=== PATIENT | female | born 1930 | race Caucasian/White ===

== ENCOUNTER 2017-10-14 16:26 | Emergency (ER) | payer BC ==
[~2017-10-14] VITALS: Ht 162.6 cm; Wt 85.0 kg
[~2017-10-14 16:26] MED LIST: OMNIPAQUE 350 MG/ML, 100ML BOTTLE ONE
[2017-10-14] MEDS ORDERED: SODIUM CHLORIDE 0.9% 1,000 ML IV ONE (16:34)
[2017-10-14] MEDS ORDERED: SODIUM CHLORIDE FLUSH 10ML SYR IVF ONE (17:00)
[2017-10-14] MEDS ORDERED: SODIUM CHLORIDE 0.9% 1,000ML IVBOLUS ONE (17:00)
[2017-10-14] MEDS ORDERED: PLEASE ENTER ALLERGIES MC SCH (17:00)
[2017-10-14 17:17] LABS: BASOPHILS # (AUTO) 0.02 x10^3/uL (0-0.1); BASOPHILS % (AUTO) 0 % (0-1); EOSINOPHILS # (AUTO) 0.25 x10^3/uL (0-0.4); EOSINOPHILS % (AUTO) 5 % (1-7); LYMPHOCYTES # (AUTO) 1.36 x10^3/uL (1-3.4); LYMPHOCYTES % (AUTO) 25 % (22-44); MD NO; MEAN CORPUSCULAR HEMOGLOBIN 31.7 pg (27.0-34.8); MEAN CORPUSCULAR HGB CONC 32.8 g/dL (33.2-36.2); MEAN CORPUSCULAR VOLUME 96.7 fL (81-97); MEAN PLATELET VOLUME 7.7 fL (7.4-10.4); MONOCYTES # (AUTO) 0.63 x10^3/uL (0.2-0.8); MONOCYTES % (AUTO) 12 % (2-9); NEUTROPHILS # (AUTO) 3.21 x10^3/uL (1.8-6.8); NEUTROPHILS % (AUTO) 59 % (42-75); PLATELET COUNT 224 x10^3/uL (130-400); RED BLOOD COUNT 4.03 x10^6/uL (3.82-5.82); RED CELL DISTRIBUTION WIDTH 15.3 % (9.4-14.8)
[2017-10-14 17:30] LABS: ANION GAP 9 mmol/L (5-15); CALCIUM 8.2 mg/dL (8.5-10.1); CHLORIDE 111 mmol/L (98-107); CREATININE 1.02 mg/dL (0.55-1.3); TROPONIN I 0.022 ng/mL (0.000-0.045)
[2017-10-14 17:31] LABS: ALANINE AMINOTRANSFERASE 21 U/L (12-78); ALBUMIN 3.3 g/dL (3.4-5.0)
[2017-10-14 17:33] LABS: ALKALINE PHOSPHATASE 117 U/L (45-117); TOTAL PROTEIN 6.6 g/dL (6.4-8.2)
[2017-10-14 17:53] LABS: MICROSCOPIC NOT IND
[2017-10-14 18:06] LABS: CULTURE INDICATED? NO
[2017-10-14] MEDS ORDERED: APIX5TAB PO (18:52)
[2017-10-14] MEDS ORDERED: DILT120C64 PO (18:52)
[2017-10-14] MEDS ORDERED: VENL75CA PO (18:52)
[2017-10-14] MEDS ORDERED: FURO-93 PO (18:52)
[2017-10-14] MEDS ORDERED: SPIR25TA PO (18:52)
[2017-10-14] MEDS ORDERED: POTA10TA6 PO (18:52)
[2017-10-14] MEDS ORDERED: ATOR20TA PO (18:52)
[2017-10-14] MEDS ORDERED: OMEP-110 PO (18:52)
[2017-10-14] MEDS ORDERED: PRAM0.255 PO (18:53)
[2017-10-14] MEDS ORDERED: PREG50CA PO (18:53)
[2017-10-14] MEDS ORDERED: B12/1TAB PO (18:53)
[2017-10-14] MEDS ORDERED: FERR324T8 PO (18:53)
[2017-10-14] MEDS ORDERED: CHOL200040 PO (18:53)
[2017-10-14] MEDS ORDERED: DONE23TA3 PO (18:53)
[2017-10-14] MEDS ORDERED: FEXO1TAB29 PO (18:53)
[2017-10-14 20:29] VITALS: BP 129/77
== END 2017-10-14 21:10 | disposition home or self-care (01) ==
LOC: ED 20:20
DX: R10.32 Left lower quadrant pain (principal); E78.5 Hyperlipidemia, unspecified; I48.91 Unspecified atrial fibrillation; J44.9 Chronic obstructive pulmonary disease, unspecified; Z90.710 Acquired absence of both cervix and uterus; Z86.73 Personal history of transient ischemic attack (TIA), and cerebral infarction without residual deficits; Z95.0 Presence of cardiac pacemaker
CPT/HCPCS: 36415; 70450; 71045; 74177; 80053; 81003; 84484; 85025; 93005; 96360; 96361; 99285; J7030

== ENCOUNTER 2017-12-16 12:52 | Inpatient (IN) | payer BC, MEDICARE ==
[~2017-12-16] VITALS: Ht 162.6 cm; Wt 62.0 kg
[~2017-12-16 12:52] MED LIST changes: +APIX5TAB PO; +ATOR20TA PO; +B12/1TAB PO; +CHOL200040 PO; +DILT120C64 PO; +DONE23TA3 PO; +FERR324T8 PO; +FEXO1TAB29 PO; +FURO-93 PO; +OMEP-110 PO; -OMNIPAQUE 350 MG/ML, 100ML BOTTLE ONE; +POTA10TA6 PO; +PRAM0.255 PO; +PREG50CA PO; +SPIR25TA PO; +VENL75CA PO
[2017-12-16] MEDS ORDERED: SODIUM CHLORIDE FLUSH 10ML SYR IVF ONE (13:30)
[2017-12-16 13:43] LABS: BASOPHILS # (AUTO) 0.03 x10^3/uL (0-0.1); BASOPHILS % (AUTO) 1 % (0-1); EOSINOPHILS # (AUTO) 0.01 x10^3/uL (0-0.4); EOSINOPHILS % (AUTO) 0 % (1-7); LYMPHOCYTES # (AUTO) 0.64 x10^3/uL (1-3.4); LYMPHOCYTES % (AUTO) 11 % (22-44); MD NO; MEAN CORPUSCULAR VOLUME 94.2 fL (80-100); MEAN PLATELET VOLUME 8.9 fL (7.4-10.4); MONOCYTES # (AUTO) 0.71 x10^3/uL (0.2-0.8); MONOCYTES % (AUTO) 13 % (2-9); NEUTROPHILS # (AUTO) 4.28 x10^3/uL (1.8-6.8); NEUTROPHILS % (AUTO) 76 % (42-75); PLATELET COUNT 183 x10^3/uL (130-400); RED BLOOD COUNT 3.48 x10^6/uL (3.82-5.3); RED CELL DISTRIBUTION WIDTH 17.1 % (9.6-15.2)
[2017-12-16 13:55] LABS: ALANINE AMINOTRANSFERASE 253 U/L (12-78); ALBUMIN 3.8 g/dL (3.4-5.0); ANION GAP 9 mmol/L (5-15); CALCIUM 8.7 mg/dL (8.5-10.1); CHLORIDE 109 mmol/L (98-107); CREATININE 1.31 mg/dL (0.55-1.02)
[2017-12-16 13:57] LABS: ALKALINE PHOSPHATASE 194 U/L (45-117); BILIRUBIN,TOTAL 3.5 mg/dL (0.2-1.0); INTERNATIONAL NORMALIZED RATIO 1.48 (0.93-1.1); PROTHROMBIN TIME 15.3 Seconds (9.6-11.5)
[2017-12-16 14:47] LABS: MICROSCOPIC INDICATED
[2017-12-16] MEDS ORDERED: HYDR1TAB12 PO (15:08)
[2017-12-16 15:21] LABS: CULTURE INDICATED? YES
[2017-12-16] MEDS ORDERED: ASPIRIN 81 MG TABLET EC ONE (15:47)
[2017-12-16] MEDS ORDERED: ASPIRIN 81 MG TABLET CHEW PO ONE (16:00)
[2017-12-16] MEDS ORDERED: ASPIRIN 81 MG TABLET CHEW ONE (16:12)
[2017-12-16] MEDS ORDERED: LORazepam 2 MG/ML, 1ML ONE (17:15)
[2017-12-16] MEDS ORDERED: CEFTRIAXONE PMX 1GM/50ML 50 ML ONE (17:15)
[2017-12-16] MEDS ORDERED: LORazepam 2 MG/ML, 1ML IVPush ONE (17:30)
[2017-12-16] MEDS ORDERED: CEFTRIAXONE PMX 1GM/50ML 50 ML IV ONE (17:30)
[2017-12-16] MEDS ORDERED: ONDANSETRON ODT 4 MG PO PRN (19:30)
[2017-12-16] MEDS ORDERED: ACETAMINOPHEN 325 MG TABLET PO PRN (19:30)
[2017-12-16] MEDS ORDERED: hydrALAzine 20 MG/ML, 1ML IVPush PRN (19:30)
[2017-12-16] MEDS ORDERED: HYDROcodone/APAP 5/325 TABLET PO PRN (19:30)
[2017-12-16] MEDS ORDERED: OMEPRAZOLE 20 MG CAPSULE.DR PO PRN (19:30)
[2017-12-16 20:26] VITALS: BP 158/76
[2017-12-16] MEDS: SODIUM CHLORIDE 0.9% 1,000 ML IV SCH (21:37)
[2017-12-16] MEDS: PREGABALIN 75 MG CAPSULE PO SCH (21:38)
[2017-12-16] MEDS: APIXABAN 5 MG TABLET PO SCH (21:38)
[2017-12-16] MEDS: VENLAFAXINE 75 MG CAP ER PO SCH (21:38)
[2017-12-17 01:53] LABS: BASOPHILS # (AUTO) 0.02 x10^3/uL (0-0.1); BASOPHILS % (AUTO) 0 % (0-1); EOSINOPHILS # (AUTO) 0.03 x10^3/uL (0-0.4); EOSINOPHILS % (AUTO) 1 % (1-7); LYMPHOCYTES # (AUTO) 0.93 x10^3/uL (1-3.4); LYMPHOCYTES % (AUTO) 16 % (22-44); MD NO; MEAN CORPUSCULAR HGB CONC 33.8 g/dL (32.4-35.8); MEAN CORPUSCULAR VOLUME 94.6 fL (80-100); MEAN PLATELET VOLUME 9.3 fL (7.4-10.4); MONOCYTES # (AUTO) 0.97 x10^3/uL (0.2-0.8); MONOCYTES % (AUTO) 17 % (2-9); NEUTROPHILS # (AUTO) 3.82 x10^3/uL (1.8-6.8); NEUTROPHILS % (AUTO) 66 % (42-75); PLATELET COUNT 150 x10^3/uL (130-400); RED BLOOD COUNT 3.07 x10^6/uL (3.82-5.3); RED CELL DISTRIBUTION WIDTH 16.8 % (9.6-15.2)
[2017-12-17 01:54] VITALS: BP 123/71
[2017-12-17 01:58] LABS: ANION GAP 10 mmol/L (5-15); CALCIUM 8.2 mg/dL (8.5-10.1); CHLORIDE 112 mmol/L (98-107); CREATININE 1.28 mg/dL (0.55-1.02)
[2017-12-17 02:18] LABS: TROPONIN I 0.073 ng/mL (0.000-0.045)
[2017-12-17 07:15] VITALS: BP 145/80
[2017-12-17 08:04] LABS: TROPONIN I 0.078 ng/mL (0.000-0.045)
[2017-12-17] MEDS: APIXABAN 5 MG TABLET PO SCH ×2 (09:09→20:39)
[2017-12-17] MEDS: FERROUS GLUCONATE 324 MG TABLET PO SCH (09:09)
[2017-12-17] MEDS: SPIRONOLACTONE 25 MG TABLET PO SCH (09:10)
[2017-12-17] MEDS: PREGABALIN 75 MG CAPSULE PO SCH ×2 (09:10→20:39)
[2017-12-17] MEDS: VENLAFAXINE 75 MG CAP ER PO SCH ×2 (09:10→20:39)
[2017-12-17] MEDS: DILTIAZEM 120 MG CAP.ER.24H PO SCH (09:10)
[2017-12-17] MEDS: SODIUM CHLORIDE 0.9% 1,000 ML IV SCH (10:06)
[2017-12-17 14:10] VITALS: BP 127/71
[2017-12-17] MEDS: CEFTRIAXONE PMX 1GM/50ML 50 ML IV SCH (18:04)
[2017-12-17 18:36] VITALS: BP 143/81
[2017-12-17] MEDS ORDERED: FEXO60TA24 PO (22:20)
[2017-12-17] MEDS ORDERED: ATOR20TA9 PO (22:20)
[2017-12-18] MEDS: SODIUM CHLORIDE 0.9% 1,000 ML IV SCH ×2 (00:05→14:17)
[2017-12-18 02:34] VITALS: BP 132/77
[2017-12-18 04:53] LABS: BASOPHILS # (AUTO) 0.02 x10^3/uL (0-0.1); BASOPHILS % (AUTO) 0 % (0-1); EOSINOPHILS # (AUTO) 0.11 x10^3/uL (0-0.4); EOSINOPHILS % (AUTO) 2 % (1-7); LYMPHOCYTES # (AUTO) 0.77 x10^3/uL (1-3.4); LYMPHOCYTES % (AUTO) 13 % (22-44); MD NO; MEAN CORPUSCULAR HEMOGLOBIN 31.1 pg (27.0-34.8); MEAN CORPUSCULAR VOLUME 94.2 fL (80-100); MEAN PLATELET VOLUME 9.7 fL (7.4-10.4); MONOCYTES # (AUTO) 1.04 x10^3/uL (0.2-0.8); MONOCYTES % (AUTO) 18 % (2-9); NEUTROPHILS # (AUTO) 3.98 x10^3/uL (1.8-6.8); NEUTROPHILS % (AUTO) 67 % (42-75); PLATELET COUNT 133 x10^3/uL (130-400); RED CELL DISTRIBUTION WIDTH 17.3 % (9.6-15.2)
[2017-12-18 05:09] LABS: CHLORIDE 114 mmol/L (98-107)
[2017-12-18 05:17] LABS: ALANINE AMINOTRANSFERASE 339 U/L (12-78); ALBUMIN 3.3 g/dL (3.4-5.0); ALKALINE PHOSPHATASE 156 U/L (45-117); ANION GAP 10 mmol/L (5-15); BILIRUBIN,TOTAL 2.5 mg/dL (0.2-1.0); CALCIUM 8.2 mg/dL (8.5-10.1); CREATININE 1.11 mg/dL (0.55-1.02); TOTAL PROTEIN 6.1 g/dL (6.4-8.2)
[2017-12-18 07:00] VITALS: BP 121/75
[2017-12-18] MEDS: DILTIAZEM 120 MG CAP.ER.24H PO SCH (09:27)
[2017-12-18] MEDS: VENLAFAXINE 75 MG CAP ER PO SCH ×2 (09:27→20:04)
[2017-12-18] MEDS: SPIRONOLACTONE 25 MG TABLET PO SCH (09:27)
[2017-12-18] MEDS: APIXABAN 5 MG TABLET PO SCH (09:28)
[2017-12-18] MEDS: PREGABALIN 75 MG CAPSULE PO SCH ×2 (09:28→20:04)
[2017-12-18] MEDS: FERROUS GLUCONATE 324 MG TABLET PO SCH (09:28)
[2017-12-18 14:02] VITALS: BP 139/84
[2017-12-18] MEDS: CEFTRIAXONE PMX 1GM/50ML 50 ML IV SCH (17:45)
[2017-12-18 18:38] VITALS: BP 132/83
[2017-12-19 02:17] VITALS: BP 129/68
[2017-12-19] MEDS: SODIUM CHLORIDE 0.9% 1,000 ML IV SCH ×2 (03:46→16:31)
[2017-12-19 05:08] LABS: INTERNATIONAL NORMALIZED RATIO 1.57 (0.93-1.1)
[2017-12-19 05:13] LABS: ALANINE AMINOTRANSFERASE 377 U/L (12-78); ALBUMIN 3.2 g/dL (3.4-5.0); ANION GAP 10 mmol/L (5-15); CALCIUM 8.2 mg/dL (8.5-10.1); CHLORIDE 112 mmol/L (98-107); CREATININE 1.05 mg/dL (0.55-1.02)
[2017-12-19 05:14] LABS: ALKALINE PHOSPHATASE 164 U/L (45-117); BILIRUBIN,TOTAL 2.3 mg/dL (0.2-1.0); TOTAL PROTEIN 6.4 g/dL (6.4-8.2)
[2017-12-19 05:55] LABS: MD YES; MEAN CORPUSCULAR HEMOGLOBIN 30.9 pg (27.0-34.8); MEAN CORPUSCULAR HGB CONC 32.5 g/dL (32.4-35.8); MEAN CORPUSCULAR VOLUME 95.3 fL (80-100); PLATELET COUNT 136 x10^3/uL (130-400); RED BLOOD COUNT 3.18 x10^6/uL (3.82-5.3); RED CELL DISTRIBUTION WIDTH 17.2 % (9.6-15.2)
[2017-12-19 05:57] LABS: ANISOCYTOSIS 1+; BASOS#(MANUAL) 0.06 x10^3/uL (0-0.1); BASOS% (MANUAL) 1 % (0-1); EOS#(MANUAL) 0.06 x10^3/uL (0.0-0.4); EOS% (MANUAL) 1 % (1-7); LYMPH#(MANUAL) 1.02 x10^3/uL (1-3.4); LYMPHS% (MANUAL) 17 % (22-44); MONOS#(MANUAL) 0.18 x10^3/uL (0.3-2.7); MONOS% (MANUAL) 3 % (2-9); NRBC % (MANUAL) 2 % (0-1); OVALOCYTES 2+; POLYCHROMASIA 1+; SEG#(MANUAL) 4.68 x10^3/uL (1.8-6.8); SEGS% (MANUAL) 78 % (42-75)
[2017-12-19 05:58] LABS: ECHINOCYTES 1+; SCHISTOCYTES 1+
[2017-12-19 05:59] LABS: <PLATELET ESTIMATE> ADEQUATE; <PLT MORPHOLOGY> NORMAL PLT MORPH
[2017-12-19 07:10] VITALS: BP 130/78
[2017-12-19] MEDS: PREGABALIN 75 MG CAPSULE PO SCH ×3 (09:00→20:57)
[2017-12-19] MEDS: DILTIAZEM 120 MG CAP.ER.24H PO SCH ×2 (09:00→10:57)
[2017-12-19] MEDS: FERROUS GLUCONATE 324 MG TABLET PO SCH ×2 (09:00→10:57)
[2017-12-19] MEDS: SPIRONOLACTONE 25 MG TABLET PO SCH ×2 (09:00→10:57)
[2017-12-19] MEDS: VENLAFAXINE 75 MG CAP ER PO SCH ×3 (09:00→21:42)
[2017-12-19 12:53] VITALS: BP 125/75
[2017-12-19] MEDS: CEFTRIAXONE PMX 1GM/50ML 50 ML IV SCH (16:31)
[2017-12-19] MEDS: GUAIFENESIN/DM 200-20MG, 10ML UDC PO SCH ×2 (16:31→21:42)
[2017-12-19 18:55] VITALS: BP 120/75
[2017-12-20 01:29] VITALS: BP 138/84
[2017-12-20] MEDS ORDERED: MAGNESIUM SULFATE PMX 2GM/50ML 50 ML IV ONE (02:00)
[2017-12-20] MEDS: GUAIFENESIN/DM 200-20MG, 10ML UDC PO SCH ×4 (04:46→23:03)
[2017-12-20 05:46] LABS: INTERNATIONAL NORMALIZED RATIO 1.51 (0.93-1.1); PROTHROMBIN TIME 15.4 Seconds (9.6-11.5)
[2017-12-20 05:57] LABS: MEAN CORPUSCULAR HEMOGLOBIN 31.6 pg (27.0-34.8); MEAN CORPUSCULAR HGB CONC 33.2 g/dL (32.4-35.8); MEAN CORPUSCULAR VOLUME 95.1 fL (80-100); MEAN PLATELET VOLUME 9.8 fL (7.4-10.4); PLATELET COUNT 141 x10^3/uL (130-400); RED BLOOD COUNT 3.06 x10^6/uL (3.82-5.3); RED CELL DISTRIBUTION WIDTH 17.1 % (9.6-15.2)
[2017-12-20 06:12] LABS: CHLORIDE 113 mmol/L (98-107)
[2017-12-20 06:21] LABS: ALANINE AMINOTRANSFERASE 404 U/L (12-78); ALBUMIN 3.3 g/dL (3.4-5.0); ALKALINE PHOSPHATASE 150 U/L (45-117); ANION GAP 14 mmol/L (5-15); BILIRUBIN,TOTAL 2.6 mg/dL (0.2-1.0); CALCIUM 8.1 mg/dL (8.5-10.1); CREATININE 1.01 mg/dL (0.55-1.02); TOTAL PROTEIN 6.3 g/dL (6.4-8.2)
[2017-12-20 06:37] LABS: MD YES
[2017-12-20 06:44] LABS: EOS#(MANUAL) 0.06 x10^3/uL (0.0-0.4); EOS% (MANUAL) 1 % (1-7); LYMPH#(MANUAL) 1.26 x10^3/uL (1-3.4); LYMPHS% (MANUAL) 21 % (22-44); METAMYELOCYTES# (MANUAL) 0.06 x10^3/uL (0-0); METAMYELOCYTES% (MANUAL) 1 % (0-1); MONOS% (MANUAL) 15 % (2-9); NRBC % (MANUAL) 2 % (0-1); SEG#(MANUAL) 3.72 x10^3/uL (1.8-6.8); SEGS% (MANUAL) 62 % (42-75)
[2017-12-20 06:45] LABS: <PLATELET ESTIMATE> ADEQUATE; <PLT MORPHOLOGY> NORMAL PLT MORPH; ANISOCYTOSIS 1+; ECHINOCYTES 1+; OVALOCYTES 2+; SCHISTOCYTES 1+
[2017-12-20 07:08] VITALS: BP 132/83
[2017-12-20] MEDS: FERROUS GLUCONATE 324 MG TABLET PO SCH (09:44)
[2017-12-20] MEDS: VENLAFAXINE 75 MG CAP ER PO SCH ×2 (09:44→21:00)
[2017-12-20] MEDS: SPIRONOLACTONE 25 MG TABLET PO SCH (09:44)
[2017-12-20] MEDS: PREGABALIN 75 MG CAPSULE PO SCH ×2 (09:44→21:30)
[2017-12-20] MEDS: DILTIAZEM 120 MG CAP.ER.24H PO SCH (09:44)
[2017-12-20] MEDS: SODIUM CHLORIDE 0.9% 1,000 ML IV SCH (12:00)
[2017-12-20 14:41] VITALS: BP 115/71
[2017-12-20] MEDS ORDERED: FUROSEMIDE 40 MG/4 ML IV ONE (16:00)
[2017-12-20] MEDS ORDERED: OMNIPAQUE 350 MG/ML, 100ML BOTTLE ONE (17:21)
[2017-12-20] MEDS: POTASSIUM CHLORIDE 10 MEQ TABLET.ER PO SCH (18:13)
[2017-12-20 18:38] VITALS: BP 124/69
[2017-12-21 02:09] VITALS: BP 130/86
[2017-12-21] MEDS: GUAIFENESIN/DM 200-20MG, 10ML UDC PO SCH ×4 (04:00→22:00)
[2017-12-21 05:11] LABS: ALBUMIN 3.2 g/dL (3.4-5.0); ANION GAP 9 mmol/L (5-15); CHLORIDE 111 mmol/L (98-107); MEAN CORPUSCULAR HEMOGLOBIN 30.9 pg (27.0-34.8); MEAN CORPUSCULAR HGB CONC 32.5 g/dL (32.4-35.8); MEAN CORPUSCULAR VOLUME 94.8 fL (80-100); PLATELET COUNT 145 x10^3/uL (130-400); RED BLOOD COUNT 3.04 x10^6/uL (3.82-5.3); RED CELL DISTRIBUTION WIDTH 17.7 % (9.6-15.2)
[2017-12-21 05:16] LABS: ALANINE AMINOTRANSFERASE 371 U/L (12-78); ALKALINE PHOSPHATASE 132 U/L (45-117); BILIRUBIN,TOTAL 2.9 mg/dL (0.2-1.0); CREATININE 1.16 mg/dL (0.55-1.02)
[2017-12-21 05:42] LABS: MD YES
[2017-12-21 05:44] LABS: EOS#(MANUAL) 0.11 x10^3/uL (0.0-0.4); EOS% (MANUAL) 2 % (1-7); LYMPH#(MANUAL) 1.25 x10^3/uL (1-3.4); LYMPHS% (MANUAL) 22 % (22-44); MONOS#(MANUAL) 0.51 x10^3/uL (0.3-2.7); MONOS% (MANUAL) 9 % (2-9); NRBC % (MANUAL) 3 % (0-1); SEG#(MANUAL) 3.82 x10^3/uL (1.8-6.8); SEGS% (MANUAL) 67 % (42-75)
[2017-12-21 05:45] LABS: ANISOCYTOSIS 1+; ECHINOCYTES 1+; OVALOCYTES 2+; SCHISTOCYTES 1+
[2017-12-21 05:46] LABS: <PLATELET ESTIMATE> ADEQUATE; <PLT MORPHOLOGY> NORMAL PLT MORPH; POLYCHROMASIA 1+
[2017-12-21 07:22] VITALS: BP 133/81
[2017-12-21] MEDS ORDERED: FUROSEMIDE 40 MG/4 ML IV SCH (09:00)
[2017-12-21] MEDS: SPIRONOLACTONE 25 MG TABLET PO SCH (09:21)
[2017-12-21] MEDS: DILTIAZEM 120 MG CAP.ER.24H PO SCH (09:21)
[2017-12-21] MEDS: VENLAFAXINE 75 MG CAP ER PO SCH ×2 (09:21→21:00)
[2017-12-21] MEDS: PREGABALIN 75 MG CAPSULE PO SCH ×2 (09:21→20:59)
[2017-12-21] MEDS: FERROUS GLUCONATE 324 MG TABLET PO SCH (09:21)
[2017-12-21] MEDS: FUROSEMIDE 40 MG/4 ML IV SCH ×2 (09:33→22:01)
[2017-12-21 13:14] VITALS: BP 111/66
[2017-12-21] MEDS: POTASSIUM CHLORIDE 10 MEQ TABLET.ER PO SCH (17:33)
[2017-12-21 20:45] VITALS: BP 126/70
[2017-12-22 01:10] VITALS: BP 124/75
[2017-12-22] MEDS: GUAIFENESIN/DM 200-20MG, 10ML UDC PO SCH ×4 (04:00→21:17)
[2017-12-22 06:02] LABS: ANION GAP 8 mmol/L (5-15); CALCIUM 7.8 mg/dL (8.5-10.1); CHLORIDE 109 mmol/L (98-107)
[2017-12-22 06:06] LABS: ALANINE AMINOTRANSFERASE 308 U/L (12-78); ALKALINE PHOSPHATASE 134 U/L (45-117); BILIRUBIN,TOTAL 2.6 mg/dL (0.2-1.0)
[2017-12-22] MEDS ORDERED: POTASSIUM CHLORIDE 20 MEQ TAB.ER.PRT PO ONE ×2 (08:00)
[2017-12-22 08:11] VITALS: BP 123/81
[2017-12-22] MEDS: FUROSEMIDE 40 MG/4 ML IV SCH ×2 (08:15→21:17)
[2017-12-22] MEDS: VENLAFAXINE 75 MG CAP ER PO SCH ×2 (08:15→21:00)
[2017-12-22] MEDS: PREGABALIN 75 MG CAPSULE PO SCH ×2 (08:16→21:17)
[2017-12-22] MEDS: FERROUS GLUCONATE 324 MG TABLET PO SCH (08:16)
[2017-12-22] MEDS: DILTIAZEM 120 MG CAP.ER.24H PO SCH (08:16)
[2017-12-22] MEDS: SPIRONOLACTONE 25 MG TABLET PO SCH (08:16)
[2017-12-22 13:45] VITALS: BP 121/91
[2017-12-22 14:05] LABS: ANA SCREEN POSITIVE (Negative); ANTI-NUCLEAR ANTIBODY PATTERN SPECKLED
[2017-12-22] MEDS: POTASSIUM CHLORIDE 20 MEQ TAB.ER.PRT PO SCH (16:18)
[2017-12-22 20:06] VITALS: BP 118/76
[2017-12-23 02:36] VITALS: BP 113/70
[2017-12-23] MEDS: GUAIFENESIN/DM 200-20MG, 10ML UDC PO SCH ×4 (04:00→22:00)
[2017-12-23 05:30] LABS: ANION GAP 7 mmol/L (5-15); CALCIUM 7.7 mg/dL (8.5-10.1); CHLORIDE 108 mmol/L (98-107)
[2017-12-23 05:36] LABS: ALANINE AMINOTRANSFERASE 260 U/L (12-78); ALKALINE PHOSPHATASE 146 U/L (45-117); BILIRUBIN,TOTAL 2.7 mg/dL (0.2-1.0); CREATININE 1.08 mg/dL (0.55-1.02)
[2017-12-23 08:17] VITALS: BP 136/78
[2017-12-23] MEDS: FERROUS GLUCONATE 324 MG TABLET PO SCH (09:53)
[2017-12-23] MEDS: PREGABALIN 75 MG CAPSULE PO SCH ×2 (09:53→20:32)
[2017-12-23] MEDS: DILTIAZEM 120 MG CAP.ER.24H PO SCH (09:53)
[2017-12-23] MEDS: SPIRONOLACTONE 25 MG TABLET PO SCH (09:54)
[2017-12-23] MEDS: VENLAFAXINE 75 MG CAP ER PO SCH ×2 (10:01→20:33)
[2017-12-23 12:49] VITALS: BP 105/71
[2017-12-23] MEDS: FUROSEMIDE 40 MG TABLET PO SCH (16:47)
[2017-12-23] MEDS: POTASSIUM CHLORIDE 20 MEQ TAB.ER.PRT PO SCH (16:47)
[2017-12-23 19:57] VITALS: BP 104/67
[2017-12-23] MEDS: ATORVASTATIN 20 MG TABLET PO SCH (20:32)
[2017-12-23] MEDS: APIXABAN 5 MG TABLET PO SCH (20:33)
[2017-12-24 01:59] VITALS: BP 113/68
[2017-12-24] MEDS: GUAIFENESIN/DM 200-20MG, 10ML UDC PO SCH ×4 (03:45→20:54)
[2017-12-24 09:16] VITALS: BP 110/63
[2017-12-24] MEDS: PREGABALIN 75 MG CAPSULE PO SCH ×2 (09:24→20:54)
[2017-12-24] MEDS: CHOLECALCIFEROL 1,000 UNIT TABLET PO SCH (09:25)
[2017-12-24] MEDS: SPIRONOLACTONE 25 MG TABLET PO SCH (09:25)
[2017-12-24] MEDS: DILTIAZEM 120 MG CAP.ER.24H PO SCH (09:25)
[2017-12-24] MEDS: FUROSEMIDE 40 MG TABLET PO SCH ×2 (09:25→17:00)
[2017-12-24] MEDS: APIXABAN 5 MG TABLET PO SCH ×2 (09:25→20:54)
[2017-12-24] MEDS: FERROUS GLUCONATE 324 MG TABLET PO SCH (09:25)
[2017-12-24] MEDS: VENLAFAXINE 75 MG CAP ER PO SCH ×2 (09:26→20:53)
[2017-12-24] MEDS: MULTIVITS,STRESS FORMULA 1 TABLET PO SCH (09:31)
[2017-12-24 14:26] VITALS: BP 110/71
[2017-12-24] MEDS: POTASSIUM CHLORIDE 20 MEQ TAB.ER.PRT PO SCH (17:01)
[2017-12-24 19:54] VITALS: BP 104/62
[2017-12-24] MEDS: ATORVASTATIN 20 MG TABLET PO SCH (20:53)
[2017-12-25 01:12] VITALS: BP 116/64
[2017-12-25] MEDS: GUAIFENESIN/DM 200-20MG, 10ML UDC PO SCH ×4 (04:00→22:07)
[2017-12-25 07:30] VITALS: BP 104/67
[2017-12-25] MEDS: APIXABAN 5 MG TABLET PO SCH ×2 (08:43→20:33)
[2017-12-25] MEDS: MULTIVITS,STRESS FORMULA 1 TABLET PO SCH (08:43)
[2017-12-25] MEDS: PREGABALIN 75 MG CAPSULE PO SCH ×2 (08:43→20:32)
[2017-12-25] MEDS: CHOLECALCIFEROL 1,000 UNIT TABLET PO SCH (08:43)
[2017-12-25] MEDS: DILTIAZEM 120 MG CAP.ER.24H PO SCH (08:44)
[2017-12-25] MEDS: FERROUS GLUCONATE 324 MG TABLET PO SCH (08:44)
[2017-12-25] MEDS: FUROSEMIDE 40 MG TABLET PO SCH ×2 (08:44→16:09)
[2017-12-25] MEDS: SPIRONOLACTONE 25 MG TABLET PO SCH (08:44)
[2017-12-25] MEDS: VENLAFAXINE 75 MG CAP ER PO SCH ×2 (08:45→20:33)
[2017-12-25 12:25] VITALS: BP 108/70
[2017-12-25] MEDS: POTASSIUM CHLORIDE 20 MEQ TAB.ER.PRT PO SCH (16:09)
[2017-12-25 20:26] VITALS: BP 118/67
[2017-12-25] MEDS: ATORVASTATIN 20 MG TABLET PO SCH (20:33)
[2017-12-26 02:24] VITALS: BP 142/76
[2017-12-26] MEDS: GUAIFENESIN/DM 200-20MG, 10ML UDC PO SCH ×2 (04:00→07:53)
[2017-12-26 07:38] VITALS: BP 110/70
[2017-12-26] MEDS: FUROSEMIDE 40 MG TABLET PO SCH (07:53)
[2017-12-26] MEDS: PREGABALIN 75 MG CAPSULE PO SCH (07:53)
[2017-12-26] MEDS: MULTIVITS,STRESS FORMULA 1 TABLET PO SCH (07:53)
[2017-12-26] MEDS: FERROUS GLUCONATE 324 MG TABLET PO SCH (07:53)
[2017-12-26] MEDS: DILTIAZEM 120 MG CAP.ER.24H PO SCH (07:54)
[2017-12-26] MEDS: SPIRONOLACTONE 25 MG TABLET PO SCH (07:54)
[2017-12-26] MEDS: CHOLECALCIFEROL 1,000 UNIT TABLET PO SCH (07:54)
[2017-12-26] MEDS: APIXABAN 5 MG TABLET PO SCH (07:54)
[2017-12-26] MEDS: VENLAFAXINE 75 MG CAP ER PO SCH (07:55)
[2017-12-26] MEDS ORDERED: FURO40TA6 PO (12:47)
[2017-12-26] MEDS ORDERED: POTA20TA6 PO (12:47)
[2017-12-26 13:25] VITALS: BP 121/75
== END 2017-12-26 15:29 | DRG 682 ==
LOC: ED 17:32 → EDIP 17:33 → ED 18:13 → 4WST 20:20
PROVIDERS: ADMIT Hospitalist; ATTEND Hospitalist
PROC: 5A09357 Assistance with Respiratory Ventilation, Less than 24 Consecutive Hours, Continuous Positive Airway Pressure (ICD-10-PCS; 2017-12-18)
PROC: 5A09357 Assistance with Respiratory Ventilation, Less than 24 Consecutive Hours, Continuous Positive Airway Pressure (ICD-10-PCS; 2017-12-21)
PROC: 5A09357 Assistance with Respiratory Ventilation, Less than 24 Consecutive Hours, Continuous Positive Airway Pressure (ICD-10-PCS; principal; 2017-12-24)
DX: N17.0 Acute kidney failure with tubular necrosis (principal); G93.41 Metabolic encephalopathy; I50.33 Acute on chronic diastolic (congestive) heart failure; I27.20 Pulmonary hypertension, unspecified; D68.69 Other thrombophilia; F33.0 Major depressive disorder, recurrent, mild; I48.91 Unspecified atrial fibrillation; I27.81 Cor pulmonale (chronic); G24.9 Dystonia, unspecified; N39.0 Urinary tract infection, site not specified; G25.81 Restless legs syndrome; D64.9 Anemia, unspecified; I11.0 Hypertensive heart disease with heart failure; E78.5 Hyperlipidemia, unspecified; J44.9 Chronic obstructive pulmonary disease, unspecified; K80.20 Calculus of gallbladder without cholecystitis without obstruction; T50.2X5A Adverse effect of carbonic-anhydrase inhibitors, benzothiadiazides and other diuretics, initial encounter; R00.0 Tachycardia, unspecified; R51 Headache; R74.0 Nonspecific elevation of levels of transaminase and lactic acid dehydrogenase [LDH]; Z79.01 Long term (current) use of anticoagulants; Z79.82 Long term (current) use of aspirin; Z81.8 Family history of other mental and behavioral disorders; Z82.5 Family history of asthma and other chronic lower respiratory diseases; Z87.891 Personal history of nicotine dependence; Z90.710 Acquired absence of both cervix and uterus; Z95.0 Presence of cardiac pacemaker; K75.9 Inflammatory liver disease, unspecified
CPT/HCPCS: 36415; 71045; 71046; 72131; 74177; 76700; 80048; 80053; 80074; 81001; 82728; 83516; 83540; 83550; 83605; 83735; 83880; 84145; 84484; 85025; 85610; 85730; 86038; 86039; 87040; 87086; 93005; 93306; 96365; 96375; J0696; J1940; Q0162; Q9967; 92523-GN; J2060; J3475; J7030